=== PATIENT | male | born 2000 | race Caucasian/White ===

== ENCOUNTER 2025-01-14 14:17 | Inpatient (IN) ==
[2025-01-14 15:17] LABS: Appearance Urine Clear (Clear); Glucose Urine UA Negative (Negative)
--- NOTE | 2025-01-14 15:29 | Emergency Department Note ---
Impression & Plan Suicidal ideation, Depression ED Provider Note HISTORY OF PRESENT ILLNESS: Patient is a 24-year-old male presenting with suicidal ideation. Patient states that he has been having recurrent thoughts of wanting to end his life for the last few days. He states that the last few weeks things have been "building up." He states that "I just feel like I have nothing to live for anymore." He states "I feel very lost." He has never attempted suicide before. Denies any homicidal ideation. He denies being admitted for inpatient psychiatric treatment in the past. He does not have an outpatient therapist. He states that his mental health medications are prescribed by his primary doctor. He states that about a month ago he was previously on Paxil but his doctor changed him to now be on buspirone and Zoloft. Patient reports that all he does is sleep all day because he does not have any motivation to get up and do anything. ROS: as above PHYSICAL EXAM: Constitutional: Patient appears in no acute distress. HENT: Head: Normocephalic and atraumatic. Eyes: EOMI, PERRL Mouth/Throat: Mucous membranes moist. Neck: Trachea midline. Neck supple. Musculoskeletal: No edema, tenderness or deformity noted. Skin: Warm and dry. No rash, erythema, pallor or cyanosis Psychiatric: Flat affect. Poor eye contact. Neurological: Alert and keenly responsive. CN II-XII grossly intact, moving all extremities equally and fully. MDM: - Vitals signs stable. - History obtained via patient. History as above. - Chronic conditions affecting care: Anxiety/depression - Differential diagnoses include, but are not limited to: depression - External medical records reviewed. - Laboratory workup interpreted by myself showed normal WBC; stable electrolytes; normal TSH; negative salicylate/acetaminophen/alcohol levels - UA negative for infection - UDS positive for marijuana - COVID negative - Patient medically cleared. He was seen in conjunction with behavioral health rn case mgr. Do feel that the patient would benefit from inpatient psychiatric admission. Patient was agreeable and signed a voluntary 201. Bed search in process. - Patient was excepted to the [facility] inpatient psychiatric unit for further evaluation and management. ASSESSMENT AND PLAN: Diagnosis: Suicidal ideation; depression Plan: Admit to [facility] Past Med/Surg History Problem List (Updated 01/14/25 @ 19:23 by Isaura Anton MD) Depression (Acute) Suicidal ideation (Acute) Medical History No active medical problems Family History Other Family history non-contributory Social History Smoking Status: Never smoker Tobacco Type: E-cigarettes / Vaping Preferred Language: [place] Feels Safe at Home: Yes Gender Identity: Male Allergies Allergies Allergy/AdvReac Type Severity Reaction Status Date / Time pollen extracts Allergy Mild Congested Verified 03/08/21 19:33 Home Meds Home Medications Medication Instructions Recorded Confirmed No Known Home Medications 01/14/25 01/14/25 Results & Data (ED) Vital Signs Vital Signs - 24 hr 01/14/25 14:20 01/14/25 17:00 Temperature 36.7 C Temperature Source Temporal Artery Scan Pulse Rate 68 Pulse Rate [Finger] 65 Respiratory Rate 19 18 Respiratory Effort / Characteristics Non-Labored Spontaneous Non-Labored Spontaneous Respiratory Depth Normal Normal Respiratory Pattern Regular Regular Blood Pressure 119/84 Blood Pressure [Right Arm] 122/70 Blood Pressure Mean 95 Blood Pressure Mean [Right Arm] 87 Pulse Oximetry 99 100 Oxygen Delivery Method Room Air Room Air Sepsis Recent Fever Within 48 Hours No Sepsis New/Unexplained Change in Mental Status No Sepsis Action Taken by Nursing No Action Required Laboratory Data 01/14/25 15:59 01/14/25 15:00 Lab Results 01/14/25 01/14/25 Range/Units 15:00 15:59 WBC 5.54 (4.8-10.8) K/ul RBC 5.33 (4.70-6.10) M/uL Hgb 15.8 (14.0-18.0) g/dl Hct 44.3 (42.0-52.0) % MCV 83.1 (80.0-100.0) fL MCH 29.6 (25.0-34.0) pg MCHC 35.7 (32.0-36.0) g/dL RDW Std Deviation 37.6 (36.4-46.3) fL RDW Coeff of Brandyn 12.4 (11.5-14.5) % Plt Count 158 (130-400) K/uL MPV 10.5 (9.4-12.4) fL Immature Gran % (Auto) 0.2 % Neut % (Auto) 67.7 % Lymph % (Auto) 22.7 % [place] % (Auto) 7.4 % Eos % (Auto) 0.9 % Baso % (Auto) 1.1 % Neut # (Auto) 3.75 (1.40-6.50) K/uL Lymph # (Auto) 1.26 (1.20-3.40) K/uL Cook # (Auto) 0.41 (0.11-0.59) K/uL Eos # (Auto) 0.05 (0.00-0.50) K/uL Baso # (Auto) 0.06 (0.00-0.20) K/uL Immature Gran # (Auto) 0.01 (0.01-0.20) K/uL Sodium 137 (136-145) mmol/L Potassium 4.5 (3.5-5.1) mmol/L Chloride 102 (98-107) mmol/L Carbon Dioxide 29 (21-32) mmol/L Anion Gap 6 (3-11) BUN 11 (6-23) mg/dl Creatinine 1.12 (0.6-1.4) mg/dl Est Cr Clr Drug Dosing 83.5 ml/min eGFR 92.92 BUN/Creatinine Ratio 9.8 L (10-20) Glucose 85 (70-99(Fasting)) mg/dl Calcium 9.8 (8.6-10.3) mg/dl Total Bilirubin 1.1 H (0.2-1.0) mg/dl AST 15 (13-39) U/L ALT 13 (7-52) U/L Alkaline Phosphatase 51 (34-104) U/L Total Protein 7.8 (6.0-8.3) gm/dl Albumin 4.9 (3.4-5.0) gm/dl Globulin 2.9 (2.5-4.0) gm/dl Albumin/Globulin Ratio 1.7 (0.9-2) TSH 1.814 (0.300-4.500) uIu/ml Urine Color Yellow Urine Appearance Clear (Clear) Urine pH 8.0 H (4.5-7.5) Ur Specific [place] 1.010 (1.000-1.030) Urine Protein Negative (Negative) Urine Glucose (UA) Negative (Negative) Urine Ketones Negative (Negative) Urine Blood Negative (Negative) Urine Nitrite Negative (Negative) Urine Bilirubin Negative (Negative) Urine Urobilinogen Negative (Negative) Ur Leukocyte Esterase Negative (Negative) Urine Comment Salicylates < 3.0 L (3.0-30) mg/dl Urine Opiates Screen Neg (Neg) Ur Methadone, Qual Neg (Neg) Urine Fentanyl Screen Neg (Neg) Acetaminophen < 3 L (10-30) ug/ml Urine Barbiturates Neg (Neg) Ur Phencyclidine (PCP) Neg (Neg) U Amphetamin/Meth Scrn Neg (Neg) MDMA (Ecstasy) Screen Neg (Neg) U Benzodiazepines Scrn Neg (Neg) Ur Cocaine Metabolite Neg (Neg) U Marijuana (THC) Screen Pos H (Neg) Ethyl Alcohol mg/dL < 10.0 (<10.0) mg/dl SARS-CoV-2, RNA, NAAT NEGATIVE (NEGATIVE) Discharge Plan Visit Data Chief Complaint: Mental Health Evaluation Stated Complaint: MENTAL HEALTH- SUICIDAL ED Provider: Isaura Anton Discharge Problem: Suicidal ideation, Depression Condition: Fair Forms Stand Alone Forms: [facility], Suicide Prevention Resources Prescriptions Prescriptions: No Action No Known Home Medications Referrals Referrals: PCP,NO [Primary Care Provider] -
[2025-01-14 15:41] LABS: Alanine Aminotransferase 13.0 U/L (7-52); Albumin Globulin Ratio 1.7 (0.9-2); Alkaline Phosphatase 51.0 U/L (34-104); Anion Gap 6.0 (3-11); Bilirubin,Total 1.1 mg/dl (0.2-1.0); Blood Urea Nitrogen 11.0 mg/dl (6-23); Calcium 9.8 mg/dl (8.6-10.3); Carbon Dioxide 29.0 mmol/L (21-32); Chloride 102.0 mmol/L (98-107); Creatinine Clr Calc Pharmacy 83.5 ml/min; Globulin 2.9 gm/dl (2.5-4.0); Glucose 85.0 mg/dl (70-99(Fasting)); Potassium 4.5 mmol/L (3.5-5.1); Sodium 137.0 mmol/L (136-145); Total Protein 7.8 gm/dl (6.0-8.3)
[2025-01-14 15:52] LABS: Acetaminophen < 3 ug/ml (10-30); Salicylate < 3.0 mg/dl (3.0-30)
[2025-01-14 15:56] LABS: Thyroid Stimulating Hormone 1.814 uIu/ml (0.300-4.500)
[2025-01-14 16:04] LABS: Amphetamines+Metham, Urine Neg (Neg); MDMA (Ecstacy), Urine Neg (Neg); Marijuana, Urine Pos (Neg)
[2025-01-14 16:12] LABS: Hematocrit (blood only) 44.3 % (42.0-52.0); Hemoglobin 15.8 g/dl (14.0-18.0); Immature Granulocytes # (auto) 0.01 K/uL (0.01-0.20); Immature Granulocytes % (auto) 0.2 %; Mean Corpuscular Hemoglobin 29.6 pg (25.0-34.0); Mean Corpuscular Volume 83.1 fL (80.0-100.0); Platelet Count 158 K/uL (130-400); RDW Standard Deviation 37.6 fL (36.4-46.3); Red Blood Count 5.33 M/uL (4.70-6.10); White Blood Count 5.54 K/ul (4.8-10.8)
[2025-01-14] MEDS ORDERED: BISMUTH SUBSALICYLATE 262 MG CHEW PO PRN (20:09)
[2025-01-14] MEDS ORDERED: ALUMINUM/MAGNESIUM SUSP 30 ML UDC PO PRN (20:09)
[2025-01-14] MEDS ORDERED: ACETAMINOPHEN 325 MG TAB PO PRN (20:09)
[2025-01-14] MEDS ORDERED: SODIUM CHLORIDE 0.65% NA SOLN 45 ML (OCEAN) PRN (20:09)
[2025-01-14] MEDS ORDERED: MAGNESIUM HYDROXIDE SUSP 30 ML UDC PO PRN (20:09)
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
[2025-01-15] MEDS: busPIRone 5 MG TAB PO SCH (20:12)
[2025-01-16] MEDS: CHOLECALCIFEROL 125 MCG (5,000 UNITS) TAB PO SCH (10:17)
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
[2025-01-18 14:27] LABS: Marijuana Quant, GCMS Urine 3061 ng/mL (<5)
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
--- NOTE | 2025-01-19 09:17 | Discharge Summary ---
Date of Service January 19, 2025 History of Present Illness The patient complains of decreased energy, decreased appetite, low mood, increased anxious ruminations, recent suicidal ideation and cites triggers such as social media. Complains of anxiety about the state of the world. Reports fair energy, concentration, sleep maintenance. he is interested in art and it has been providing him less azalea than before. Concern for excess guilt. No significant loss of self-esteem. Symptoms have been occurring for the past 2 weeks he reports this happens monthly. Complains of sleep onset racing thoughts. Complains of fear of judgment and often isolates. Avoids leaving the home or getting on the phone because of how he may be judged. This is because problems and obtaining his GED, moving out of his parents home, finding employment, dating. Parents have been concerned about obsessive handwashing. Describes himself as "quiet and shy". Reports anxiety triggers of hearing loud noises and starts "panicking". Denies having regular distressing dreams. Denies current SI. Last felt suicidal 2 days ago due to feeling like he has a lack of social skills. No current plan or intent. Wants to live for his family. Feels hopeless every other day. Denies access to firearms. Denies past suicide attempts. Denies past drug or alcohol treatment. Uses medical marijuana by vaping nightly. Denies other drug or alcohol use. Past 1 pack year smoker. No caffeine use. Patient grew up in [place]. parents were supportive and he had good good relationships with siblings and friends. mother had alcohol problem which has not resolved however there was a lot of yelling in the household when he was young. He denies emotional neglect. Denies physical or sexual abuse. Was bullied in middle school for stature and being poor. Past psychiatric history: Was on Paxil 50 mg and was initially effective and then stopped working after a few years. Recently was started on Zoloft and BuSpar by PCP. Past talk therapy. Sister with depression and on medications. Mother with h/o alcohol dependence. Social history: Lives at home with parents for the past year and has access to transportation. Denies violence at home or housing concerns and can return home after discharge. Youngest of 4 siblings. Currently single for 7 years. Not sexually active. Bisexual orientation. No past marriages or children. Reports not having any friends. Completed the 11th grade in [employer]. Left early due to anxiety issues. 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 Denies past legal problems or arrests. Does not belong to a spiritual group. Does not exercise or eat healthy. 01/15/25 13:50 - Sand Molder Note by Pablo BAILEY obtained HANNY from pt in order to collect collateral information from parents. SW spoke with the patients father, Chance Klein (Senior) [phone], regarding current psychiatric hospitalization. Father reports that the patient has been isolating himself frequently, spending most of his time alone in his room and expressing little motivation or desire to engage in activities. He is described as being alone with his thoughts and refuses to leave the house, even with his parents present. Refusal to leave the home has also been a barrier to accessing any services. He was previously employed but left his job, stating he did not like it. Father noted that the patient had been in the hospital a month ago and initially appeared to improve by participating in meals and spending time with family, but experienced a sudden and significant decline approximately two weeks ago. This led to the current admission. Father indicated that patient is reportedly awaiting effectiveness of new medication, which he started last month upon discharge from [facility] (Paroxetine HCl 40 mg daily noted in 12/17/24 ED Discharge Packet). There is no known history of suicide attempts, although his father expressed concern that when the patient is alone, he tends to ruminate and may have intrusive or negative thoughts. The patient has limited communication with family and continues to self-isolate. Father disclosed a family history of depression in both himself and the patients mother. 01/14/25 22:22 - Psychiatric Liason Note by Cody Singleton RN Patient admitted on 302 exp. 01/20 2112 for unspecified depressive disorder at 2145 - accepting Dr. Villatoro, alert and oriented x 4 - quiet and anxious, endorses fleeting SI with no plan - denies HI, denies hallucinations/delusions, patient came to ER today feeling hopeless and like he was "at the end of his rope" - has been experiencing depression/anxiety for as long as he can remember and is without insurance so has not sought help - was in the ER about a month ago and was safety planned home at that time - he did not follow up on outpatient due to lack of motivation and insurance, patient's mom at bedside states that she wakes up each morning hoping "my son isn't ", patient has been taking 25mg zoloft and 10mg buspar prescribed by his PCP and has been on Paxil in the past but the medications aren't "getting him where he wants to go", denies any history of inpatient treatment and is currently unable to hold a job due to "social anxiety", patient does use medical marijuana a few times a week for sleep but denies drug/alcohol use - states his mom is an alcoholic, lives with his parents and feels safe there - finds support in his 3 older sisters and 4 nieces, patient describes a long history of bullying in middle school and high school which resulted in him dropping out, he endorses insomnia and poor appetite, denies access to guns at home, oriented to unit at this time and PRN vistaril administered due to patient's anxiety. Physical Exam Mental Examination Appearance: Disheveled Eye Contact: Maintains Eye Contact Motor Behavior: Unremarkable Speech: Soft Mood: Euthymic Affect: Congruent Thought Process: Intact and Linear Thought Content: Intact Hallucinations: None Insight: Fair (to limited) Judgement: Fair Vital Signs (Past 24 Hours) Last Vital Signs Temp 36.6 C 01/19/25 06:18 Pulse 62 01/19/25 06:19 Resp 16 01/19/25 06:18 BP 120/72 01/19/25 06:19 Pulse Ox 100 01/19/25 06:18 O2 Del Method Room Air 01/19/25 06:18 Principal Diagnosis Social Anxiety Disorder Psychiatric Data See daily stay summary. In short, safety was maintained and the patient was cooperative with care. Medication changes included starting fluoxetine 20mg daily, increasing home Buspirone to 10mg BID and they tolerated this well. A family session was held and safety plan was completed prior to discharge. Patient presented transient SI which resolved upon admission. Presents significant social fear and associated anxiety which has led to social and occupation dysfunction and not reaching his life goals. He presented good behaviors on the unit, was engage in groups, tolerated medications well, and presented an improved outlook prior to discharge. Plan for CBT individual therapy. Day of Discharge Assessment Today the patient voices readiness for discharge. They note improvement in mood and deny thoughts to harm self or others. Thoughts remain organized and they are improved from admission. There is no evidence of psychosis. They agree to take mediations as prescribed and keep follow-up appointments. They are stable for discharge to outpatient level of care. Overall, I spent a total of 35 minutes with this case including review of chart records, nursing report, review of lab work, direct evaluation of the patient at bedside, counseling the patient, multidisciplinary team meeting, orders, and documentation in the electronic health record. Transition of Care Transition Of Care Record: was reviewed with the patient Advance Directives Advance Directives Information Provided: Yes Advance Directives: No Mental Health Advance Directive: No Advance Directives on File: No Living Will: No Power of Repair Cameraman: No Advance Directives Reason:: Declines as Mental Health Visit. Risk Factors Assessment Male: Yes : Yes Do You Have Access To A Gun?: No Health Problems: No Mental Health Diagnoses: Yes Substance Use Disorders: No Previous Attempt: No Family History of Suicide: No Previous Psychiatric Hospitalization: No Hopelessness: No Protective Factors Assessment Mormonism Beliefs: No : No Responsible for Young Children: No Employed: No (cant work due to social anxiety) Stable Relationships: Yes Supportive Family: Yes Good Rapport with Provider: Yes Absence of Any Risk Factors Above: No Discharge Data Lab Results 01/14/25 01/14/25 01/16/25 15:00 15:59 07:02 WBC 5.54 RBC 5.33 Hgb 15.8 Hct 44.3 MCV 83.1 MCH 29.6 MCHC 35.7 RDW Std Deviation 37.6 RDW Coeff of Brandyn 12.4 Plt Count 158 MPV 10.5 Immature Gran % (Auto) 0.2 Neut % (Auto) 67.7 Lymph % (Auto) 22.7 [place] % (Auto) 7.4 Eos % (Auto) 0.9 Baso % (Auto) 1.1 Neut # (Auto) 3.75 Lymph # (Auto) 1.26 Calvert # (Auto) 0.41 Eos # (Auto) 0.05 Baso # (Auto) 0.06 Immature Gran # (Auto) 0.01 Sodium 137 Potassium 4.5 Chloride 102 Carbon Dioxide 29 Anion Gap 6 BUN 11 Creatinine 1.12 Est Cr Clr Drug Dosing 83.5 eGFR 92.92 BUN/Creatinine Ratio 9.8 L Glucose 85 Calcium 9.8 Total Bilirubin 1.1 H AST 15 ALT 13 Alkaline Phosphatase 51 Total Protein 7.8 Albumin 4.9 Globulin 2.9 Albumin/Globulin Ratio 1.7 Vitamin B12 518 25-OH Vitamin D Total 18.8 L TSH 1.814 Urine Color Yellow Urine Appearance Clear Urine pH 8.0 H Ur Specific [place] 1.010 Urine Protein Negative Urine Glucose (UA) Negative Urine Ketones Negative Urine Blood Negative Urine Nitrite Negative Urine Bilirubin Negative Urine Urobilinogen Negative Ur Leukocyte Esterase Negative Urine Comment Salicylates < 3.0 L Urine Opiates Screen Neg Ur Methadone, Qual Neg Urine Fentanyl Screen Neg Acetaminophen < 3 L Urine Barbiturates Neg Ur Phencyclidine (PCP) Neg U Amphetamin/Meth Scrn Neg MDMA (Ecstasy) Screen Neg U Benzodiazepines Scrn Neg Ur Cocaine Metabolite Neg U Marijuana (THC) Screen Pos H U Marijuana THC Carboxy 3061 H Drug Screen Comment SEE NOTE Ethyl Alcohol mg/dL < 10.0 SARS-CoV-2, RNA, NAAT NEGATIVE Hospital Course (1) Social anxiety disorder: (2) Generalized anxiety disorder: (3) Vitamin D deficiency: Plan 01/18/2025: Continue medications and treatment plan 01/17/2025: Continue medications and treatment plan 01/16/2025: Start vitamin D 5000 units daily. Increase fluoxetine to 20 mg daily. 01/15/25:The patient was admitted to the [facility] ([facility] inpatient mental health unit) on q15 min checks (behavioral with suicide precautions) for safety. The patient will participate in group, recreational, and milieu therapies and will be offered additional individual and family sessions as clinically appropriate. -D/c home sertraline 25mg QD -Start Fluoxetine 10mg daily -Increase home Buspirone to 10mg BID Labs: Vit D, Vit B12 Questionnaires: [place] BPD screener, [place] Social Anxiety Scale, [id number], Y- BOCs Mental Health & Subst Abuse Tx Psychiatrist Name of Psychiatrist: Anam Hansen - Physician Programming Development Project Manager Psychiatrist's Date Of Appointment With Psychiatric Provider: 02/01/2025 Time of Appointment with Psychiatrist: 02:50PM arrival - [facility] - Bring Photo ID Psychiatric Appointment Comment: Must cancel 24 hours in advance. Plan 1.5 hours for first session. Therapist Name of Therapist: None Transformer Stock Clerk Name of Transformer Stock Clerk: [facility] Phone Number for Transformer Stock Clerk: [phone] Time of Appointment with Transformer Stock Clerk: SHUBHAM - Transformer Stock Clerk not yet assigned. Case Management Appointment Comment: [facility] assigning classification case manager. Outpatient therapy referral will come from [facility]. Discharge Plan Discharge Items Patient Disposition: Home - Self-Care Reason For Visit: UNSPECIFIED DEPRESSIVE DISORDER Discharge Diagnosis: Social Anxiety Disorder Generalized Anxiety Disorder Condition on Discharge: Fair Activity: Resume your previous activity Non-emergency contact: Primary Care Provider, Psychiatrist and Therapist Call non-emergency contact if: you have any medication questions and your symptoms worsen Follow-up/Referrals: PCP,NO [Primary Care Provider] - Diet: Regular Addtl Attending Provider Instructions: -Continue Fluoxetine 20mg daily -Continue Buspirone 10mg twice a day -Engage in Cognitive Behavioral Therapy. Set goals and expectations in therapy. Discuss taking gradual steps towards combating social anxiety. Pending Studies at Discharge: No Stand-Alone Forms: My [employer], Smoking Cessation Medications and DC Order Prescriptions: New buspirone 10 mg tablet 10 mg PO BID Qty: 60 0RF fluoxetine 20 mg Capsule 20 mg PO DAILY Qty: 30 0RF cholecalciferol (vitamin D3) 125 mcg (5,000 unit) Tablet 125 mcg PO QAM Qty: 30 0RF Discharge Orders: Discharge Order (Routine); Ordered 01/19/25 Ordered By: Jose Miguel Villatoro Admission Data Admit Date/Time: 01/14/25 20:09 Attending Provider: Jose Miguel Villatoro Admit Provider: Jose Miguel Villatoro Primary Care Provider: PCP,NO [place] [address] D/C day mgmt > 30 min Patient Type Established History Detailed Exam Detailed Medical Decision Making Moderate Complexity Diagnoses Social anxiety disorder F40.10 Generalized anxiety disorder F41.1 Vitamin D deficiency E55.9
== END 2025-01-19 10:45 | disposition home or self-care (01) | DRG 882 ==
LOC: ED 14:17 → 3S 20:09